=== PATIENT | male | born 1995 | race Caucasian/White ===

== ENCOUNTER 2023-01-14 17:37 | Emergency (ER) | payer OTHER, SELFPAY ==
--- NOTE | 2023-01-14 17:39 | PC.NURSE ---
Pt refuses to get in ER bed upon arrival to ER. c/o rib pain and wants to be picked up and placed in bed. Asked pt to get into bed and pt hunched over in wheelchair and refusing to do anything asked. Only acting like he is crying. Pt keeps stating doesn't want help then states wants help Pt also puts self on floor and security called. Pt assisted up by PA and security.
[2023-01-14 17:42] VITALS: BP 163/101; PULSE 88; RESP 22; TEMP 37.1; O2SAT 97; BMI 22.4
--- NOTE | 2023-01-14 17:47 | CT_ITS ---
[address] [address] Patient Name: FLEX BENITEZ MRN: [id number] date: 1995 Sex: M Assigned Patient Location: ER Current Patient Location: ED.[facility] Accession/Order Number: [id number] Exam Date: 01/14/2023 18:15 Report Date: 01/14/2023 19:03 At the request of: BRENDA PONCE Procedure: CT chest wo con EXAM: CT chest wo con HISTORY: chest wall injury COMPARISON: None. TECHNIQUE: Axial CT imaging was performed through the chest without intravenous contrast. Multiplanar reformats were performed. Dose reduction techniques were achieved by using automated exposure control and/or adjustment of mA and/or kV according to patient size and/or use of iterative reconstruction technique. FINDINGS: Lungs: No consolidation, pneumothorax, or effusion. Airways: Normal. Mediastinum: No adenopathy. Aorta: No aneurysm. Cardiac: Normal size. No pericardial effusion. Pulmonary vasculature: Normal morphology. Bones: No acute bony abnormality. Axilla: No adenopathy. Thyroid gland: No abnormality demonstrated on provided imaging. Soft tissues: Unremarkable. Upper abdomen: Unremarkable. Other findings: None. CT/CT chest wo con IMPRESSION: No acute traumatic injury of the thorax. Electronically authenticated by: MAGGIE HURTADO Date: 01/14/2023 19:03
--- NOTE | 2023-01-14 17:47 | CT_ITS ---
The [address] [address] Patient Name: FLEX BENITEZ MRN: [id number] date: 1995 Sex: M Assigned Patient Location: ER Current Patient Location: ER Accession/Order Number: [id number] Exam Date: 01/14/2023 18:15 Report Date: 01/14/2023 18:41 At the request of: BRENDA PONCE Procedure: CT head/brain wo con EXAMINATION: CT head/brain wo con, 01/14/2023 6:15 PM EDT HISTORY: altered mental status COMPARISON: None. TECHNIQUE: CT scan of the head was performed without IV contrast. CT dose reduction technique was used, including Automated Exposure Control. FINDINGS: BRAIN PARENCHYMA/CSF SPACES: Ventricles are normal in size for age. There is no hemorrhage, mass effect or midline shift. There are no other significant findings. PARANASAL SINUSES: Clear. SKULL BASE AND CALVARIUM: Normal. EXTRACRANIAL SOFT TISSUES: Normal. CT/CT head/brain wo con IMPRESSION: No acute intracranial findings. Electronically authenticated by: ARVIN CAM Date: 01/14/2023 18:41
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
[2023-01-14 18:02] LABS: Glucometer 95 mg/dL (74-106)
--- NOTE | 2023-01-14 18:05 | PC.NURSE ---
attempt to obtain urine, pt refused and assisted with pulling up underware by myself and security. Pt able to use bilat feet to push up off the bed to pull up underware without problem. Strength to bilat legs observed. Security remains at bedside. Pt updated on plan at this time
== END 2023-01-14 19:21 | disposition home or self-care (01) ==
PROVIDERS: Emergency Provider Emergency Medicine; PCP Family Medicine
DX: S29.9XXA Unspecified injury of thorax, initial encounter (principal); W22.8XXA Striking against or struck by other objects, initial encounter; Z79.899 Other long term (current) drug therapy
CPT/HCPCS: 36415; 70450; 71250; 80307; 81003; 82948; 99285

== ENCOUNTER 2023-08-12 18:51 | Emergency (ER) | payer OTHER, SELFPAY ==
[2023-08-12 18:57] VITALS: BP 165/87; PULSE 75; RESP 16; TEMP 36.9; O2SAT 98; BMI 22.3
--- NOTE | 2023-08-12 19:29 | PC.NURSE ---
Pt has small bump like stye on right lower lashes line. No redness or drainage noted to pts sclera.
--- NOTE | 2023-08-12 19:31 | ED.EYEPROB1 ---
HPI - Eye Problem General Chief complaint: Eye Problems Stated complaint: poss pink eye Time Seen by Provider: 08/12/23 19:28 Source: patient Mode of arrival: walk-in History of Present Illness HPI Narrative: 28-year-old male presents to the emergency room chief complaint of right lower eyelid swelling along the lateral region. Denies any injury or trauma. Denies any difficulty seeing.Examination is consistent with stye. Patient denies a history of stye.denies Using any medications or warm heat or compress. Related Data Home Medications Medication Instructions Recorded Confirmed buprenorphine 8 mg-naloxone 2 mg 1 film sublingual BID 01/14/23 01/14/23 sublingual film clonidine HCl 0.1 mg tablet 0.2 mg PO BID 01/14/23 01/14/23 escitalopram oxalate 5 mg tablet 5 mg PO DAILY 01/14/23 01/14/23 trazodone 100 mg tablet 100 mg PO QPM 01/14/23 01/14/23 Previous Rx's Medication Instructions Recorded tobramycin 0.3 % eye ointment 1 applic ophthalmic (eye) Q4H 7 08/12/23 (Tobrex) days #3.5 grams Allergies Allergy/AdvReac Type Severity Reaction Status Date / Time No Known Drug Allergies Allergy Verified 01/14/23 17:45 Review of Systems ROS Narrative All Systems are negative except as noted/marked. Exam Narrative Exam Narrative: All Systems are negative except as noted/marked.All systems reviewed and otherwise negative Nurses note and vital signs reviewed and patient is not hypoxic. General: The patient appears well and in no apparent distress. Patient is resting comfortably on cart. Skin: Warm, dry, no pallor noted. There is no rash noted. Head: Normocephalic, atraumatic Eye: Right lower lid swelling redness consistent with stye hordeolum. Normal conjunctiva, no drainage, EOMI. PERRL Ears, Nose, Mouth, and Throat: oral mucosa is moist. Nares patent. Mouth without vesicles. Ear canals patent. Tm's without Erythema Musculoskeletal: The patient has no evidence of calf tenderness, no pitting edema, symmetrical pulses noted bilaterally Neurological: A&O x4, normal speech Psychiatric: Cooperative Constitutional Vital Signs, click to edit/add: Last Vital Signs Temp 98.4 F 08/12/23 18:57 Pulse 70 08/12/23 19:38 Resp 18 08/12/23 19:38 BP 130/81 08/12/23 19:38 Pulse Ox 99 08/12/23 19:38 O2 Del Method Room Air 08/12/23 19:38 Course Vital Signs Vital signs: Vital Signs Temperature 98.4 F 08/12/23 18:57 Pulse Rate 75 08/12/23 18:57 Respiratory Rate 16 08/12/23 18:57 Blood Pressure 165/87 H 08/12/23 18:57 Pulse Oximetry 98 08/12/23 18:57 Temperature 98.4 F 08/12/23 18:57 Pulse Rate 70 08/12/23 19:38 Respiratory Rate 18 08/12/23 19:38 Blood Pressure 130/81 08/12/23 19:38 Pulse Oximetry 99 08/12/23 19:38 Oxygen Delivery Method Room Air 08/12/23 19:38 MDM - Eye Problem MDM Narrative Medical decision making narrative: Plaint of redness and swelling to the lower eyelid. Examination consistent with stye. He will be discharged home with an antibiotic. Patient told to use warm heat compress. He also may use [employer] no more tears shampoo. Patient agrees with plan of care. He will follow-up with primary care physician Medical Records Attestation: I reviewed the patient's medical records. Discharge Plan Discharge Chief Complaint: Eye Problems Clinical Impression: Hordeolum externum (stye) Patient Disposition: Home, Self-Care Time of Disposition Decision: 19:28 Condition: Good Mode of Transportation: Private Vehicle Prescriptions / Home Meds: New Tobrex 0.3 % ointment 1 applic ophthalmic (eye) Q4H 7 Days Qty: 3.5 0RF No Action buprenorphine-naloxone 8-2 mg film 1 film sublingual BID clonidine HCl 0.1 mg tablet 0.2 mg PO BID escitalopram oxalate 5 mg tablet 5 mg PO DAILY trazodone 100 mg tablet 100 mg PO QPM Instructions: Stye (ED) Stand Alone Forms: Portal Instructions Referrals: Prasanna Kay MD [Primary Care Provider] - 1 week Discharge Date/Time: 08/12/23 19:40
[2023-08-12 19:38] VITALS: BP 130/81; PULSE 70; RESP 18; O2SAT 99
== END 2023-08-12 19:40 | disposition home or self-care (01) ==
PROVIDERS: Emergency Provider Internal Medicine; PCP Family Medicine
DX: H00.012 Hordeolum externum right lower eyelid (principal); Z79.899 Other long term (current) drug therapy
CPT/HCPCS: 99283

== ENCOUNTER 2023-10-26 11:15 | Emergency (ER) | payer OTHER, SELFPAY ==
[2023-10-26 11:18] VITALS: BP 125/76; PULSE 53; TEMP 36.4; O2SAT 99; BMI 23.7
[2023-10-26] MEDS: TETRACAINE HCL 0.5% OP SOL 80 DROP/4 ML BOTTLE OP (11:38)
--- NOTE | 2023-10-26 12:04 | ED.EYEPROB1 ---
HPI - Eye Problem General Chief complaint: Eye Problems Stated complaint: EYE INJURY Time Seen by Provider: 10/26/23 11:33 Source: patient Mode of arrival: walk-in History of Present Illness HPI Narrative: Patient presents ED complaining of right eye pain. He woke up with the pain. He states the same thing happened to him last week on the left side. He sleeps on his belly without a pillow and he thinks maybe he scratched it somehow during the night by laying on his face. No high impact injury nothing happened at work. He woke up with eye pain and a little bit of tearing but no visual changes.No other complaints at this time MD chief complaint: Reports eye pain and eye redness Related Data Home Medications ?Medication ?Instructions ?Recorded ?Confirmed buprenorphine 8 mg-naloxone 2 mg 1 film sublingual BID 01/14/23 01/14/23 sublingual film clonidine HCl 0.1 mg tablet 0.2 mg PO BID 01/14/23 01/14/23 escitalopram oxalate 5 mg tablet 5 mg PO DAILY 01/14/23 01/14/23 trazodone 100 mg tablet 100 mg PO QPM 01/14/23 01/14/23 Previous Rx's ?Medication ?Instructions ?Recorded tobramycin 0.3 % eye ointment 1 applic ophthalmic (eye) Q4H 7 08/12/23 (Tobrex) days #3.5 grams tobramycin 0.3 %-dexamethasone 0.1 1 drp ophthalmic (eye) Q6H 5 days 10/26/23 % eye drops,suspension (TobraDex) #5 mL Allergies Allergy/AdvReac Type Severity Reaction Status Date / Time No Known Drug Allergies Allergy Verified 01/14/23 17:45 Review of Systems ROS Status of ROS 10 or more systems reviewed and unremarkable except as noted in history and below Exam Narrative Exam Narrative: General: alert, no acute distress Cardiovascular: regular rate and rhythm, normal peripheral perfusion. Respiratory: Lungs CTA, respirations non labored. Extremities: no deformity, no trauma. Neurological: oriented x 4, LOC appropriate for age. Right eye is mildly tearing and mildly injected sclera. Pupil equally round reactive to light extraocular movements intact. Tetracaine was applied and eye was stained with fluorescein strip. Viewed under the Kent lamp and shows a corneal abrasion at the5 o'clock position. Constitutional Vital Signs, click to edit/add: Last Vital Signs Temp 97.6 F 10/26/23 11:18 Pulse 53 L 10/26/23 11:18 Resp 16 10/26/23 11:18 BP 125/76 10/26/23 11:18 Pulse Ox 99 10/26/23 11:18 O2 Del Method Room Air 10/26/23 11:18 Course Vital Signs Vital signs: Vital Signs Temperature 97.6 F 10/26/23 11:18 Pulse Rate 53 L 10/26/23 11:18 Respiratory Rate 16 10/26/23 11:18 Blood Pressure 125/76 10/26/23 11:18 Pulse Oximetry 99 10/26/23 11:18 Oxygen Delivery Method Room Air 10/26/23 11:18 Temperature 97.6 F 10/26/23 11:18 Pulse Rate 53 L 10/26/23 11:18 Respiratory Rate 16 10/26/23 11:18 Blood Pressure 125/76 10/26/23 11:18 Pulse Oximetry 99 10/26/23 11:18 Oxygen Delivery Method Room Air 10/26/23 11:18 MDM - Eye Problem MDM Narrative Medical decision making narrative: Corneal abrasion seen on exam at the 5 o'clock position. Patient is feeling better after tetracaine. Differential Diagnosis Differential diagnosis: Likely corneal abrasion, conjunctivitis and acute iritis Medical Records Attestation: I reviewed the patient's medical records. Discharge Plan Discharge Stand Alone Forms: Portal Instructions Chief Complaint: Eye Problems Clinical Impression: Corneal abrasion Patient Disposition: Home, Self-Care Time of Disposition Decision: 12:07 Condition: Good Mode of Transportation: Private Vehicle Prescriptions / Home Meds: New tobramycin-dexamethasone [TobraDex] 0.3-0.1 % drops,suspension 1 drp ophthalmic (eye) Q6H 5 Days Qty: 5 0RF No Action buprenorphine-naloxone 8-2 mg film 1 film sublingual BID clonidine HCl 0.1 mg tablet 0.2 mg PO BID escitalopram oxalate 5 mg tablet 5 mg PO DAILY trazodone 100 mg tablet 100 mg PO QPM Tobrex 0.3 % ointment 1 applic ophthalmic (eye) Q4H 7 Days Qty: 3.5 0RF Print Language: Maldivian Instructions: Corneal Abrasion (DC) Referrals: Prasanna Kay MD [Primary Care Provider] - 1 week
[2023-10-26] MEDS: FLUORESCEIN SODIUM 1 MG STRIP OP (12:16)
== END 2023-10-26 12:20 | disposition home or self-care (01) ==
PROVIDERS: Emergency Provider Emergency Medicine; PCP Family Medicine
DX: S05.01XA Injury of conjunctiva and corneal abrasion without foreign body, right eye, initial encounter (principal); X58.XXXA Exposure to other specified factors, initial encounter; Z79.899 Other long term (current) drug therapy
CPT/HCPCS: 99283